=== PATIENT | female | born 1985 | race Caucasian/White ===

== ENCOUNTER 2021-03-22 00:16 | Emergency (ER) | payer SELFPAY ==
[~2021-03-22] VITALS: Ht 162.6 cm; Wt 59.0 kg
[2021-03-22 01:36] LABS: BASOPHILS % 0.3 % (0.0-2.0); HEMATOCRIT. 41.9 % (36.0-48.0); HEMOGLOBIN. 14.3 g/dL (12.0-16.0); LYMPHOCYTES % 9.6 % (20.0-50.0); MEAN CORPUSCULAR HEMOGLOBIN 32.9 pg (28.0-32.0); MEAN CORPUSCULAR VOLUME 96.4 fL (81.0-99.0); MEAN PLATELET VOLUME 9.5 fl (7.4-10.4); MONOCYTES % 4.3 % (2.0-8.0); NEUTROPHILS % 85.8 % (40.0-76.0); PLATELET 168 x1000/uL (130-400); RED BLOOD CELL COUNT 4.34 mill/uL (4.2-5.4); RED CELL DISTRIBUTION WIDTH 12.4 % (11.6-14.6)
[2021-03-22 01:43] LABS: CHLORIDE 112 mEq/L (98-107)
[2021-03-22 01:45] VITALS: BP 110/71
[2021-03-22 01:48] LABS: ETHANOL BLOOD 141 mg/dL
[2021-03-22 01:52] LABS: T4 FREE 1.08 ng/dL (0.76-1.46)
== END 2021-03-22 01:45 | disposition home or self-care (01) ==
LOC: ER 00:16
DX: F10.10 Alcohol abuse, uncomplicated (principal); Z85.850 Personal history of malignant neoplasm of thyroid; Y90.6 Blood alcohol level of 120-199 mg/100 ml
CPT/HCPCS: 36415; 80053; 80307; 80320; 80329; 84439; 84443; 84481; 85025; 99283; G0480